=== PATIENT | male | born 1985 | race African-American/Black ===

== ENCOUNTER 2017-12-09 23:32 | Emergency (ER) | payer MEDICAID ==
[~2017-12-09] VITALS: Ht 190.5 cm; Wt 76.9 kg
[2017-12-09 23:39] VITALS: BP 139/88
== END 2017-12-10 00:07 | disposition left against medical advice (07) ==
LOC: ER 23:34
DX: R11.10 Vomiting, unspecified (principal); R19.7 Diarrhea, unspecified
CPT/HCPCS: 93005; 99283